=== PATIENT | male | born 1960 | race Caucasian/White ===

== ENCOUNTER → 2017-12-24 14:33 | Outpatient (CLI) | payer OTHER, SELFPAY ==
[2017-12-24 16:12] LABS: PSA,Total - Annual Screen 3.92 ng/mL (0.00-4.00)
== END ==
PROVIDERS: Family Provider Family Medicine; PCP Family Medicine; Visit Provider Nurse Practitioner Adult Health
DX: Z12.5 Encounter for screening for malignant neoplasm of prostate (principal)
CPT/HCPCS: 36415; 84153; G0103

== ENCOUNTER → 2017-12-30 16:35 | Outpatient (CLI) | payer OTHER, SELFPAY ==
--- NOTE | 2017-12-30 16:37 | CT_ITS ---
STUDY: CT ABDOMEN AND PELVIS WITH AND WITHOUT CONTRAST REASON FOR EXAM: Male, 57 years old. Left-sided flank pain and microscopic hematuria. RADIATION DOSAGE (If Supplied By Facility): CTDIvol = ( 11.28 ) mGy, DLP = ( 790.44 ) mGycm TECHNIQUE: Transaxial images were obtained from the dome of the diaphragm to the symphysis pubis without oral contrast. 100 ml of Isovue 300 contrast was administered. Sagittal and coronal images were reconstructed. Individualized dose optimization techniques were used for this CT. COMPARISON: Prior comparison studies are not available for review at this time. FINDINGS: The visualized lung bases are unremarkable. The visualized portions of the heart are within normal limits. Normal liver. The gallbladder is contracted. Normal spleen. Normal pancreas. Normal bilateral adrenal glands. Appears to be a small cystic lesion within the lumen the interpolar region of the lower right kidney measuring approximately 7 mm. This is not clearly a simple cyst and is too small to characterize otherwise. There is an additional cystic lesion within the lower pole of the right kidney measuring 8 mm in greatest dimension. Left kidney has an exophytic cyst arising from the upper pole measuring approximately 5.7 mm. There is no evidence for hydronephrosis, hydroureter or radiopaque ureteral calculus. Normal visualized stomach. There is no evidence for dilated bowel, ascites or pneumoperitoneum. Small bowel has a grossly normal appearance. Stool is visible throughout the colon with scattered diverticula. The appendix is visualized and appears normal. There is minimal atherosclerotic calcification of the abdominal aorta, without a demonstrated aneurysm. Normal inferior vena cava. Normal retroperitoneum. Urinary bladder is nondistended with apparent thickening of the urinary bladder wall measuring up to 8 mm. Normal visualized prostate gland. Normal abdominal wall. There are bridging osteophytes of the anterior sacroiliac joints. There is multilevel degenerative arthropathy of the facet joints of the lower lumbar spine. CT/CT Abd/Pelvis W/WO Contrast IMPRESSION: 1. Multiple bilateral renal cystic lesions, too small to characterize otherwise. 2. No CT evidence for hydronephrosis, hydroureter or radiopaque ureteral calculi. Electronically Signed: Farzaneh Pablo MD at 11:03 EDT , Service support ,
== END ==
PROVIDERS: Family Provider Family Medicine; PCP Family Medicine; Visit Provider Nurse Practitioner Adult Health
DX: R31.0 Gross hematuria (principal)
CPT/HCPCS: 74178; Q9967

== ENCOUNTER 2018-04-02 07:02 | Emergency (ER) | payer OTHER, SELFPAY ==
[2018-04-02 07:03] VITALS: BP 154/89; PULSE 64; RESP 17; TEMP 36.8; O2SAT 99; BMI 24.7
--- NOTE | 2018-04-02 07:20 | CT_ITS ---
STUDY: CT BRAIN WITHOUT CONTRAST REASON FOR EXAM: Male, 57 years old. Vertigo. RADIATION DOSAGE (If Supplied By Facility): CTDIvol = ( 44.99 ) mGy, DLP = ( 829.85 ) mGycm TECHNIQUE: Transaxial CT imaging of the brain was performed without administration of intravenous contrast material. Individualized dose optimization techniques were used for this CT. COMPARISON: None. FINDINGS: Normal soft tissue structures. Normal calvarium. Normal size ventricles and extra-axial spaces for the patient's age. Normal white matter tracts of the cerebral hemispheres. Normal basal ganglia and thalami. Normal brainstem. Normal cerebellum. There is no intracranial hemorrhage. There are no findings of an acute ischemic infarction. Opacification of the maxillary and ethmoid sinuses bilaterally. Mucosal thickening of the sphenoid sinus. Partial opacification of the frontal sinus. CT/Brain/Head without Contrast IMPRESSION: Pansinusitis. Electronically Signed: Christiano Roy MD at 8:18 EDT Tel [phone], Service support ,
--- NOTE | 2018-04-02 07:27 | ED.VISSUMM ---
- ER Visit Summary Date of Service: 04/02/18 Chief Complaint: Vertigo History of Present Illness: The patient is a 57 M who had one episode of vertigo 5 days ago, he has been okay for the past 5 days today he had sudden onset of room spinning that is worse with his head movement. In fact when he does not move he has no symptoms. When he moves his head he has paroxysms of room spinning that lasts a few seconds until he stops moving his head. He has no weakness in his hands or feet, no balance issues. No vision changes. He has no chest pain or shortness of breath. Physical Examination: He is holding an emesis bag, however at this time he appears in no distress but is not following me around the room but remains with his eyes fixated. Moist mucous membranes, no obvious facial deformity No C-spine tenderness supple neck. Regular rate and rhythm without any obvious murmurs Clear lungs bilaterally speaking in full sentences without any obvious respiratory distress Abdomen soft and nontender no guarding or rebound Moves all extremities without any difficulty or pain. Skin does not show any obvious rashes or lesions, no trauma. Alert oriented ?3 with no gross focal deficit. He has leftward nystagmus horizontally. He has corrective saccade on head impulse especially on the left. Emergency Department Course and Treatment: She is found to have pansinusitis, this may cause his symptoms, I will put him on azithromycin as well as given him some Antivert for home. He is cautioned, he wants to continue riding his motorcycle I told him this is not advisable at least for the next week or so until his vertigo resolves. He understands this I will also give him Valium if he has extreme vertigo, again he is cautioned that he cannot drive or ride his motorcycle while he is taking Valium. He understands this. He will be discharged in stable condition. Impression: Vertigo Pansinusitis This note was generated with [employer] dictation software. It may contain incorrect words, spelling, and punctuation that were not noted in review of the chart prior to signing ED Disposition - Plan for ED Patient: Disposition: Home or Assisted Living Chief Complaint: Dizziness Instructions: ED BPV Vertigo Prescriptions: Azithromycin [Zithromax] 250 mg PO DAILY 4 Days #4 tab Diazepam [Valium] 5 mg PO BID 4 Days #5 tab Meclizine HCl 25 mg PO BID #20 tab Referrals: Jeet Duque MD [Primary Care Provider] - 3-5 Days
[2018-04-02] MEDS: diazePAM 5 MG Tablet PO (07:36)
[2018-04-02] MEDS: 0.9% Normal Saline 1,000 ML 1000 ML IV (07:36)
[2018-04-02] MEDS: Ondansetron 4 MG/2 ML Vial IV (07:37)
[2018-04-02 07:50] LABS: Absolute Lymphocyte Count 1.47 X10^3/ul (0.83-4.51); Absolute Neutrophil Count 9.1 X10^3/uL (2.0-7.7); Basophil# 0.01 X10^3/uL; Basophil% 0.1 % (0-1); Eosinophil# 0.12 X10^3/uL; Hematocrit 50.6 % (40-54); Hemoglobin 16.9 g/dl (13.0-16.5); Lymphocyte # 1.47 X10^3/ul (4.0); Lymphocyte % 12.8 % (19-41); Mean Corp Hgb Conc 33.4 g/gl (32-36); Mean Corpuscular Hgb 31.4 pg (27.0-32.0); Mean Corpuscular Volume 94.1 fL (80-94); Mean Platelet Vol. 10.5 fl (6.2-12.0); Monocyte# 0.74 X10^3/uL; Monocyte% 6.5 % (0-10); Neutrophil # 9.09 X10^3/uL (2.7-7.7); Neutrophil % 79.3 % (47-70); Platelet Count 277 K/mm3 (150-450); RBC Distribution Width CV 12.7 % (11.6-14.6); RBC Distribution Width SD 43.7 fl (35.1-43.9); Red Blood Count 5.38 M/mm3 (4.6-6.2); White Blood Count 11.5 K/mm3 (4.4-11.0)
[2018-04-02 07:51] LABS: POSITIVE COUNT NO; POSITIVE DIFFERENTIAL NO; POSITIVE MORPHOLOGY NO
[2018-04-02 08:04] LABS: ALB/GLOB Ratio 1.2 RATIO (0.9-2.4); AST(SGOT) 25 U/L (15-37); Alanine Aminotransfer ALT/SGPT 39 U/L (16-61); Albumin, Serum 4.2 g/dL (3.2-5.0); Alkaline Phosphatase 73 U/L (45-117); Anion Gap 3 (5-15); BUN 16 mg/dL (7-18); BUN/Creat Ratio 14.4 RATIO (10-20); Calcium,Total 9.2 mg/dL (8.5-10.1); Chloride 107 mmol/L (98-107); Creatinine, Serum 1.11 mg/dL (0.70-1.30); EST Glomerular Filtration Rate 73 mL/min (>60); Est Glom Filt Rate - Afr Amer 88 mL/min (>60); Estimated Creatinine Clearance 80.09 ml/min; Globulin 3.6 g/dL (2.2-4.2); Glucose 122 mg/dL (74-106); Potassium 4.2 mmol/L (3.5-5.1); Protein, Total 7.8 g/dL (6.4-8.2); Sodium Level 142 mmol/L (136-145)
[2018-04-02] MEDS: Azithromycin 250 MG Tablet 500 MG PO (08:49)
[2018-04-02 08:56] VITALS: BP 136/73; PULSE 84; RESP 18
== END 2018-04-02 08:57 | disposition home or self-care (01) ==
PROVIDERS: Emergency Provider Emergency Medicine; Family Provider Family Medicine; PCP Family Medicine
DX: J32.4 Chronic pansinusitis (principal); R42 Dizziness and giddiness; Z72.0 Tobacco use
CPT/HCPCS: 70450; 80053; 85025; 96361; 96374; 99285; J7030; J2405